=== PATIENT | female | born 1980 | race Caucasian/White ===

== ENCOUNTER → 2025-03-20 | Outpatient (REF) | payer BC ==
[2025-03-20 18:15] LABS: BASO # 0.1 10^3/uL (0.0-0.2); BASO % 0.9 % (0.0-1.0); EOS # 0.0 10^3/uL (0.0-0.5); EOS % 0.7 % (0.0-3.0); LYMPH # 1.1 10^3/uL (1.5-5.0); LYMPH % 19.8 % (24.0-44.0); MONO # 0.5 10^3/uL (0.0-0.8); MONO % 8.8 % (2.0-8.0); NEUTROPHILS # 3.8 10^3/uL (1.5-8.5); NEUTROPHILS % 69.6 % (36.0-66.0); PLATELET COUNT, AUTOMATED 274 10^3/uL (150-450)
[2025-03-20 18:20] LABS: ERYTHROCYTE SEDIMENTATION RATE 21 mm/hr (0-20)
[2025-03-20 18:47] LABS: ALT/SGPT 29 U/L (7.0-40); AST/SGOT 27 U/L (<34); C REACTIVE PROTEIN QUANTITATIV < 0.50 MG/DL (<1.0); CALCIUM LEVEL 9.5 MG/DL (8.5-10.1); CARBON DIOXIDE LEVEL 28 MMOL/L (20-31); CHLORIDE LEVEL 102 MMOL/L (98-107); CREATININE FOR GFR 0.78 MG/DL (0.55-1.30); FREE T4 1.20 NG/DL (0.89-1.76); GLOMERULAR FILTRATION RATE > 90.0 (>58); IRON (FE) 116 UG/DL (50-170); PERCENT SATURATION 37.1 % (13.2-45.0); POTASSIUM SERUM 3.9 MMOL/L (3.5-5.1); RHEUMATOID FACTOR QUANT 5.6 IU/ML (<14); SODIUM LEVEL 140 MMOL/L (136-145)
[2025-03-20 18:49] LABS: VITAMIN B12 LEVEL 883 PG/ML (211-911)
[2025-03-24 01:52] LABS: ANTI SCLERODERMA ANTIBODIES <1.0 NEG AI (<1.0 NEG)
== END ==
LOC: M SFHCLERA 11:12
PROVIDERS: ATTEND Internal Medicine
DX: M79.641 Pain in right hand (principal); D64.9 Anemia, unspecified; R53.83 Other fatigue